=== PATIENT | female | born 1985 | race Caucasian/White ===

== ENCOUNTER 2017-12-25 03:50 | Emergency (ER) | payer SELFPAY ==
[~2017-12-25] VITALS: Ht 157.5 cm; Wt 67.6 kg
[2017-12-25 04:05] VITALS: BP 112/77
--- NOTE | 2017-12-25 04:21 | ED DYSPNEA/ASTHMA COMPLAINT ---
History of Present Illness General Chief Complaint: General Adult Stated Complaint: "I CANT BREATH AND MY ASTHMA ACTING" Source: patient Exam Limitations: no limitations Vital Signs & Intake/Output Vital Signs & Intake/Output Vital Signs Date Time Temp Pulse Resp B/P B/P Pulse O2 O2 Flow FiO2 Mean Ox Delivery Rate 12/25 0406 95 Room Air 12/25 0405 97.4 76 20 112/77 95 Room Air Allergies Uncoded Allergies: Allergy Other CATS Med Allergies NKDA Reconcile Medications No Known Home Medications Triage Note: PT REPORTS HAVING WHEEZING WHEN SHES HOME, UNSURE IF ITS AN ALLERGEN AT HOME. PT REPORTS FEELING LIKE SHE CANT TAKE A DEEP BREATH. SPO2 95% RA. PT STATES THAT SHE HAS A PRODUCTIVE COUGH WITH YELLOW PHLEGM. Triage Nurses Notes Reviewed? yes Onset: Gradual Duration: week(s):, continues in ED, getting worse, intermittent Severity: mild, moderate : No Patient currently breastfeeds: No HPI: Patient presents for evaluation of worsening asthma. Patient states that she has had issues with her asthma all winter long. It she states the asthma seems particularly bad at home. She has run out of her albuterol inhaler and has no insurance currently. She denies any associated fever or cold symptoms but does admit to occasional cigarette smoking. Past History Travel History Traveled to [place] past 21 day No Medical History Any Pertinent Medical History? see below for history Cardiovascular: hypertension Respiratory: asthma Surgical History Surgical History: non-contributory Psychosocial History What is your primary language Belizean Tobacco Use: Current Daily Use Daily Tobacco Use Amount/Type: =< 4 Cigarettes daily ETOH Use: occasional use Illicit Drug Use: marijuana Family History Hx Contributory? No Review of Systems Review of Systems Constitutional: Reports: no symptoms. EENTM: Reports: no symptoms. Respiratory: Reports: see HPI. Cardiovascular: Reports: no symptoms. GI: Reports: no symptoms. Genitourinary: Reports: no symptoms. Musculoskeletal: Reports: no symptoms. Skin: Reports: no symptoms. Neurological/Psychological: Reports: no symptoms. Hematologic/Endocrine: Reports: no symptoms. Immunologic/Allergic: Reports: no symptoms. All Other Systems: Reviewed and Negative Physical Exam Physical Exam Respiratory: SEE BELOW Comments: Gen.: Well-nourished, well-developed, no acute respiratory distress. Head: Normocephalic, atraumatic. Eyes: Normal inspection bilaterally Ears: Normal inspection bilaterally Nose: Normal inspection Throat/mouth : Moist mucosa Neck: Supple, full range of motion, no goiter Heart: Regular rate and rhythm, no murmurs rubs or gallops Lungs: Scattered end expiratory wheezes anteriorly with normal air entry Chest: Nontender Back: Normal range of motion Abdomen: Soft, nontender, nondistended, normal bowel sounds Extremities: Normal range of motion grossly, equal radial pulses, no cyanosis clubbing or edema Neurologic: Cranial nerves grossly intact, speech is clear Skin: warm and dry Psychiatric: Calm, cooperative, no apparent delusions or hallucinations Core Measures ACS in differential dx? No CVA/TIA Diagnosis No Sepsis Present: No Sepsis Focused Exam Completed? No Progress Differential Diagnosis: asthma, bronchitis, CHF, COPD, pneumonia Plan of Care: See discharge instructions Initial ED EKG: none Departure Departure Disposition: HOME OR SELF CARE Condition: Stable Clinical Impression Primary Impression: Asthma Qualifiers: Asthma severity: mild Asthma persistence: intermittent Asthma complication type: uncomplicated Qualified Code: J45.20 - Mild intermittent asthma, uncomplicated Referrals: Patient Has No Primary Care Dr (PCP/Family) Additional Instructions: Albuterol as needed for your asthma. Try to quit smoking entirely. Follow-up with your primary care physician for reevaluation if not improving over the next 48 hours. Return if any concerns or sudden worsening. Thank you for choosing the [facility] for your care. It was a pleasure to serve you today. Modesto Bills M.D. [facility] Departure Forms: Customer Survey General Discharge Information Prescriptions: Current Visit Scripts No Known Home Medications Critical Care Note Critical Care Note Critical Care Time: non-applicable
[2017-12-25] MEDS ORDERED: PROAIR HFA8.5 GM INH (04:26)
== END 2017-12-25 04:29 ==
LOC: ERH 03:50
DX: J45.909 Unspecified asthma, uncomplicated (principal); F17.210 Nicotine dependence, cigarettes, uncomplicated